=== PATIENT | male | born 1955 | race Two or more races ===

== ENCOUNTER 2016-05-13 09:13 | Inpatient (IN) | payer BC ==
[~2016-05-13] VITALS: Ht 172.7 cm; Wt 81.6 kg
[~2016-05-13 09:13] MED LIST: ALBUTEROL SULF8.5 GM INH; MEDROL DOSEPAK4 MG ORAL; PROZAC20 MG ORAL
[2016-05-13] MEDS ORDERED: NKM (09:25)
[2016-05-13 09:33] VITALS: BP 130/60
[2016-05-13] MEDS ORDERED: LORazepam 1mg tab ORAL ONE (10:00)
[2016-05-13 11:04] LABS: BASOPHILS % (AUTO) 1.4 % (0.0-2.0); EOSINOPHILS % (AUTO) 4.3 % (0.0-3.0); LYMPHOCYTES % (AUTO) 32.7 % (20.0-45.0); MEAN CORPUSCULAR HEMOGLOBIN 33.2 PG (27.0-31.0); MEAN CORPUSCULAR HGB CONC 35.6 G/DL (32.0-36.0); MEAN CORPUSCULAR VOLUME 93 FL (80-99); MEAN PLATELET VOLUME 7.3 FL (6.5-10.1); NEUTROPHILS % (AUTO) 52.7 % (45.0-75.0); PLATELET COUNT 286 K/UL (150-450); RED BLOOD COUNT 4.59 M/UL (4.70-6.10); RED CELL DISTRIBUTION WIDTH 10.8 % (11.6-14.8)
[2016-05-13 11:15] LABS: ALANINE AMINOTRANSFERASE 38 U/L (3-41); ALBUMIN/GLOBULIN RATIO 1.3 (1.0-2.7); ANION GAP 15 (5-15); ASPARTATE AMINO TRANSFERASE 26 U/L (5-40); CALCIUM 9.5 mg/dL (8.6-10.2); CARBON DIOXIDE 27 mEQ/L (20-30); CHLORIDE 100 mEQ/L (98-107); GLOMERULAR FILTRATION RATE > 60 mL/min (>60); HEMOLYSIS 4; POTASSIUM 4.1 mEQ/L (3.4-4.9); SODIUM 142 mEQ/L (135-145); TOTAL PROTEIN 7.6 g/dL (6.6-8.7)
[2016-05-13 11:28] LABS: TROPONIN I < 0.30 ng/mL (<=0.30)
[2016-05-13 11:38] LABS: CKMB 2.6 ng/mL (< 6.7)
[2016-05-13 12:02] VITALS: BP 133/73
--- NOTE | 2016-05-13 12:27 | Diagnostic Imaging Report ---
Indication: Headache Technique: Contiguous 5 mm thick transaxial imaging of the head obtained in a Siemens Sensation [address] scanner. Soft tissue and bone windows generated. Total Dose length Product (DLP): [address] Dose Index Volume (CTDIvol): 70.38 mGy Comparison: none Findings: The size and configuration of the cortical sulci, basal cisterns, and ventricles are within normal limits for age. There is no mass effect, midline shift, or edema identified. There is no evidence of acute hemorrhage or abnormal intra-axial or extra-axial fluid collections. The bones and soft tissues are unremarkable. Impression: No mass effect, edema or acute bleed. The CT scanner at [facility] is accredited by the [employer] and the scans are performed using protocols designed to limit radiation exposure to as low as reasonably achievable to attain images of sufficient resolution adequate for diagnostic evaluation.
--- NOTE | 2016-05-13 12:39 | Diagnostic Imaging Report ---
Indication: Chest Pain Comparison: None A single view chest radiograph was obtained. Findings: Cardiomediastinal appearance is within normal limits for age. Pulmonary vascularity is appropriate. The diaphragmatic contour is smooth and costophrenic angles are sharp. No pleural effusions are identified. The bones are unremarkable. Impression: No acute findings
--- NOTE | 2016-05-13 12:59 | Emergency Room Report ---
History of Present Illness General Chief Complaint: Dizziness Source: Patient Present Illness HPI 60 YOM presents with dizziness and difficult ambulation since last night. Patient unable to qualify type of dizziness but denies associated headache, tinnitus, hearing loss, headache, neck pain/stiffness. States dizziness worse with sitting up, head movement. Never had before. Has difficult standing up. Associated with some vomiting this morning. Patient also endorsing recent frequent self-described panic attacks. Happened at outpatient surgery office 1-2 weeks ago after argument with staff there. Patient "felt like he was going to be arrested" and "broke down." Currently has Rx benzo as needed for panic attacks. Otherwise denies chest pain, SOB, abd pain, urinary complaints. Denies other medical problems. Allergies: Coded Allergies: PENICILLINS (Verified Allergy, Unknown, 04/17/15) Patient History Past Medical History: psych hx Past Surgical History: none Pertinent Family History: none Social History: Denies: alcohol use, drug use, smoking Immunizations: UTD Reviewed Nursing Documentation: PMH: Agreed, PSxH: Agreed Nursing Documentation-PMH Past Medical History: No Stated History Review of Systems All Other Systems: negative except mentioned in HPI Physical Exam Vital Signs Date Time Temp Pulse Resp B/P Pulse Ox O2 Delivery O2 Flow Rate FiO2 05/13/16 09:22 97.0 98 18 169/107 97 Room Air Sp02 EP Interpretation: reviewed, abnormal General Appearance: normal inspection, well appearing, no apparent distress, alert, GCS 15, non-toxic Head: normocephalic, atraumatic Eyes: bilateral eye EOMI, bilateral eye PERRL ENT: normal ENT inspection, hearing grossly normal, normal voice Neck: normal inspection, full range of motion, supple, no bony tend Respiratory: normal inspection, lungs clear, normal breath sounds, no respiratory distress, no retraction, no wheezing Cardiovascular #1: regular rate, rhythm, no edema Gastrointestinal: normal inspection, normal bowel sounds, non tender, soft, no guarding, no hernia Genitourinary: no CVA tenderness Musculoskeletal: normal inspection, back normal, normal range of motion, Aneudy' s Sign negative Neurologic: normal inspection, alert, responsive, 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 Cant ambulate 1-2 steps without falling over. However negative Romberg. Negative cerebellar signs, Psychiatric: normal inspection, judgement/insight normal, mood/affect normal, anxious Medical Decision Making Diagnostic Impression: Primary Impression: Dizziness Additional Impression: Ataxia ER Course Dizziness with ataxia. VS notable for elevated BP likely d/t anxiety, distress. During initial workup, when CXR techs came to do CXR, patient abruptly broke down, started crying, very anxious, "thought they were the police to take me away." DDx includes mass/tumor, infection, psych/anxiety, pseudo-seizure Labs: Normal H&H. No leuks. No metabolic abnormalities. CT head negative for acute process to explain dizziness, ataxia. On reassessment at 1230pm, patient still very ataxic bedside. Family is very concerned. Patient asked to eat and was given food by family. Soon thereafter, seen ambulating with steady gait in ED, feels "90% better." I discussed this with new PMD Dr Pappas who agrees for admission for Neuro consult , MRI. Endorsed to Dr Pappas for med/surg admission at 1258pm Rhythm Strip Diag. Results EP Interpretation: yes Rate: 75 Rhythm: NSR, no PVC's, no ectopy Chest X-Ray Diagnostic Results EP Interpretation: Yes Findings: no consolidation, no effusion, no pneumothorax, no acute cardiopulmonary disease Number of Views: 1 Last Vital Signs Date Time Temp Pulse Resp B/P Pulse Ox O2 Delivery O2 Flow Rate FiO2 05/13/16 12:02 98.2 88 18 133/73 100 05/13/16 09:33 Room Air Status: improved Disposition: ADMITTED INPATIENT Condition: Serious Referrals: NON PHYSICIAN (PCP) KADY SANTORO M.D. May 13, 2016 12:59
[2016-05-13] MEDS ORDERED: LORazepam 1mg tab ORAL PRN (14:30)
--- NOTE | 2016-05-13 15:07 | Diagnostic Imaging Report ---
Indication: Dizziness Technique: The head was imaged in a 1.5 Iesha magnet. Sequences obtained include sagittal and axial T1 FLAIR, axial T2 fast spin echo with fat saturation, axial T2 FLAIR, diffusion and ADC map. Gadolinium-enhanced axial and coronal T1 FLAIR obtained also. Comparison: None Findings: The size, contour, and configuration of the sulci, ventricles, and basal cisterns appear normal. Reyes-white differentiation is normal. There is no restricted diffusion. There is no mass effect, midline shift, edema, or hemorrhage. There are no abnormal extra-axial or intra-axial fluid collections. There is minimal brainstem and periventricular T2 hyperintense signal. Findings may be due to chronic small vessel disease. The corpus callosum is unremarkable. The brainstem and cerebellum are unremarkable. The sella is unremarkable. Bone marrow signal within the visualized osseous structures appears age appropriate and unremarkable otherwise. No abnormal enhancement is identified. Impression: No acute findings
[2016-05-13 16:00] VITALS: BP 140/75
[2016-05-13 16:23] LABS: EOSINOPHILS % (AUTO) 3.5 % (0.0-3.0); LYMPHOCYTES % (AUTO) 31.4 % (20.0-45.0); MEAN CORPUSCULAR HEMOGLOBIN 33.4 PG (27.0-31.0); MEAN CORPUSCULAR HGB CONC 34.9 G/DL (32.0-36.0); MEAN CORPUSCULAR VOLUME 96 FL (80-99); MEAN PLATELET VOLUME 7.2 FL (6.5-10.1); MONOCYTES % (AUTO) 8.2 % (1.0-10.0); NEUTROPHILS % (AUTO) 55.9 % (45.0-75.0); PLATELET COUNT 299 K/UL (150-450); RED BLOOD COUNT 4.46 M/UL (4.70-6.10); RED CELL DISTRIBUTION WIDTH 11.2 % (11.6-14.8)
[2016-05-13 16:24] LABS: ALANINE AMINOTRANSFERASE 40 U/L (3-41); ALBUMIN/GLOBULIN RATIO 1.4 (1.0-2.7); ANION GAP 13 (5-15); ASPARTATE AMINO TRANSFERASE 28 U/L (5-40); CALCIUM 9.7 mg/dL (8.6-10.2); CARBON DIOXIDE 30 mEQ/L (20-30); CHLORIDE 103 mEQ/L (98-107); CHOLESTEROL 228 mg/dL (< 200); CHOLESTEROL/HDL RATIO 8.1 (3.3-4.4); CREATININE 1.2 mg/dL (0.7-1.2); GLOMERULAR FILTRATION RATE > 60 mL/min (>60); HEMOLYSIS 8; LDL CHOLESTEROL (CALC.) 139 mg/dL (60-99); MAGNESIUM 2.5 mg/dL (1.7-2.5); POTASSIUM 4.6 mEQ/L (3.4-4.9); SODIUM 146 mEQ/L (135-145); TOTAL PROTEIN 7.6 g/dL (6.6-8.7)
[2016-05-13] MEDS ORDERED: Zolpidem 5mg tab ORAL PRN (21:00)
--- NOTE | 2016-05-15 14:57 | Discharge Summary ---
Adamaris Owens NP 05/15/16 1457: Discharge Summary Hospital Course Date of Admission May 13, 2016 at 12:08 Date of Discharge May 13, 2016 at 16:41 Admitting Diagnosis DIZZINESS HPI Carroll Tamez is a 60 year old male who was admitted on May 13, 2016 at 12:08 for Dizziness Hospital Course [id number] Discharge Discharge Disposition Patient left AMA Discharge Diagnoses: ERIBERTO MARTELL 05/19/16 1436: Discharge Summary Discharge Discharge Disposition Pt left AMA before I saw him. The nurses report he was walking without any ataxia. Discharge Diagnoses: Adamaris Owens NP May 15, 2016 14:57 ERIBERTO MARTELL May 19, 2016 14:36
--- NOTE | 2016-05-16 15:09 | Cardiology Report ---
APPROVED REPORT EKG Measurement Heart [id number] DC [id number] Normal sinus rhythm Right superior axis deviation Nonspecific intraventricular block Cannot rule out Septal infarct, age undetermined Abnormal ECG
== END 2016-05-13 16:41 | disposition left against medical advice (07) | DRG 149 ==
LOC: EMR 09:55 → INTOOBSV 12:08 → 4E 12:08 → OBSVTOIN 12:08 → EDBEDREQ 12:39
DX: R42 Dizziness and giddiness (principal); F41.0 Panic disorder [episodic paroxysmal anxiety]; R27.0 Ataxia, unspecified; Z88.0 Allergy status to penicillin
CPT/HCPCS: 36415; 70450; 70553; 71010; 80053; 80061; 82550; 82553; 83036; 83735; 84443; 84484; 85025; 93005; A9585